=== PATIENT | female | born 1975 | race Caucasian/White ===

== ENCOUNTER 2018-04-13 18:08 | Emergency (ER) | payer MEDICAID ==
[2018-04-13] MEDS: LORAZEPAM 0.5 MG TAB PO (19:20)
[2018-04-13] MEDS: ACETAMINOPHEN 325 MG TAB PO (19:20)
[2018-04-13 19:23] LABS: URINE PH (Dip) POC 6.5 (5.0-8.5)
[2018-04-13 19:23] LABS: URINE BLOOD (Dip) POC 2+ (NEGATIVE); URINE GLUCOSE (Dip) POC Negative (NEGATIVE); URINE KETONES (Dip) POC Negative (NEGATIVE); URINE LEUKOCYTE EST (Dip) POC Negative (NEGATIVE); URINE NITRITE (Dip) POC Negative (NEGATIVE); URINE TOTAL PROTEIN POC Negative (NEGATIVE)
== END 2018-04-13 20:53 | disposition home or self-care (01) ==
LOC: FTE 18:08
DX: R51 Headache (principal)
CPT/HCPCS: 70450; 81003; 81025; 93005; 99284-25